=== PATIENT | female | born 1995 | race American Indian/Alaskan Native ===

== ENCOUNTER 2019-10-29 21:22 | Emergency (ER) | payer SELFPAY ==
[2019-10-29 21:36] VITALS: BP 145/86
--- NOTE | 2019-10-30 00:51 | Emergency Department Report ---
ED ENT HPI - General Chief complaint: Dental/Oral Stated complaint: MOUTH PAIN Time Seen by Provider: 10/29/19 23:28 Source: patient Mode of arrival: Ambulatory Limitations: No Limitations - History of Present Illness MD complaint: tooth pain -: Gradual, days(s) (5) Location: tooth # Severity: mild, moderate Quality: dull Consistency: constant Improves with: none Worsens with: none Context- Dental: history of dental caries, trauma, poor dental care Associated Symptoms: toothache. denies: sore throat, tinnitus, hearing loss, d ischarge from ear, rhinorrhea - Related Data Previous Rx's Medication Instructions Recorded Last Taken Type Amoxicillin [Amoxicillin TAB] 875 mg PO BID #20 tablet 10/30/19 Unknown Rx Ketorolac [Toradol] 10 mg PO Q6H PRN #15 tablet 10/30/19 Unknown Rx Lidocaine Viscous 2% 5 ml MM Q3H PRN #120 udc 10/30/19 Unknown Rx ED Dental HPI - General Chief complaint: Dental/Oral Stated complaint: MOUTH PAIN Time Seen by Provider: 10/29/19 23:28 Source: patient Mode of arrival: Ambulatory Limitations: No Limitations - Related Data Previous Rx's Medication Instructions Recorded Last Taken Type Amoxicillin [Amoxicillin TAB] 875 mg PO BID #20 tablet 10/30/19 Unknown Rx Ketorolac [Toradol] 10 mg PO Q6H PRN #15 tablet 10/30/19 Unknown Rx Lidocaine Viscous 2% 5 ml MM Q3H PRN #120 udc 10/30/19 Unknown Rx ED Review of Systems ROS: Stated complaint: MOUTH PAIN Other details as noted in HPI Comment: All other systems reviewed and negative ED Past Medical Hx - Past Medical History Previous Medical History?: Yes Hx Diabetes: Yes - Surgical History Past Surgical History?: No - Social History Smoking Status: Current Every Day Smoker Substance Use Type: None - Medications Home Medications: Home Medications Medication Instructions Recorded Confirmed Last Taken Type Amoxicillin [Amoxicillin TAB] 875 mg PO BID #20 tablet 10/30/19 Unknown Rx Ketorolac [Toradol] 10 mg PO Q6H PRN #15 tablet 10/30/19 Unknown Rx Lidocaine Viscous 2% 5 ml MM Q3H PRN #120 udc 10/30/19 Unknown Rx ED Physical Exam - General Limitations: No Limitations General appearance: alert, in no apparent distress - Head Head exam: Present: atraumatic, normocephalic - Eye Eye exam: Present: normal appearance, PERRL, EOMI Pupils: Present: normal accommodation - ENT ENT exam: Present: normal exam, normal orophraynx, mucous membranes moist, TM's normal bilaterally, other (Dental caries are noted. Is large dental caries noted to tooth #16. Mild adjacent erythema no abscess noted. Mild erythema. Tongue and uvula are midline airways patent. No exudate noted.) - Neck Neck exam: Present: normal inspection, full ROM - Respiratory Respiratory exam: Present: normal lung sounds bilaterally. Absent: respiratory distress, wheezes, rales, chest wall tenderness, accessory muscle use - Cardiovascular Cardiovascular Exam: Present: regular rate, normal rhythm. Absent: systolic murmur, diastolic murmur, rubs, gallop - GI/Abdominal GI/Abdominal exam: Present: soft, normal bowel sounds - Extremities Exam Extremities exam: Present: normal inspection - Back Exam Back exam: Present: normal inspection - Neurological Exam Neurological exam: Present: alert, oriented X3 - Psychiatric Psychiatric exam: Present: normal affect, normal mood - Skin Skin exam: Present: warm, dry, intact, normal color. Absent: rash ED Course Vital Signs 10/29/19 21:30 Temperature 98.0 F Pulse Rate 91 H Respiratory 18 Rate Blood Pressure 145/86 O2 Sat by Pulse 99 Oximetry Critical care attestation.: If time is entered above; I have spent that time in minutes in the direct care of this critically ill patient, excluding procedure time. ED Disposition Clinical Impression: Dentalgia Disposition: [id number] TO HOME OR SELFCARE Is pt being admited?: No Does the pt Need Aspirin: No Condition: Stable Instructions: Dental Caries (ED), Acute dental trauma (ED), Toothache (ED) Prescriptions: Amoxicillin [Amoxicillin TAB] 875 mg PO BID #20 tablet Lidocaine Viscous 2% 5 ml MM Q3H PRN #120 udc PRN Reason: Pain, Moderate (4-6) Ketorolac [Toradol] 10 mg PO Q6H PRN #15 tablet PRN Reason: Pain Referrals: [facility] [Outside] - 3-5 Days
[2019-10-30] MEDS ORDERED: HYDROcodone/ACETAMINOPHEN 5-325 MG TAB PO STA (00:58)
== END 2019-10-30 01:21 | disposition home or self-care (01) ==
LOC: ED 21:22
DX: K08.89 Other specified disorders of teeth and supporting structures (principal); E11.9 Type 2 diabetes mellitus without complications; F17.200 Nicotine dependence, unspecified, uncomplicated; Z79.899 Other long term (current) drug therapy
CPT/HCPCS: 99282